=== PATIENT | male | born 1950 | race Caucasian/White ===

== ENCOUNTER → 2021-09-06 | Outpatient (CLI) | payer MEDICARE ==
--- NOTE | 2021-09-06 15:37 | Diagnostic Imaging Report ---
INDICATION: Right ankle pain. No known injury. 3 views of the right ankle show no fracture, dislocation or other acute abnormality. There are mild degenerative changes with mild spurring at the tip of the medial malleolus. There is a small corticated bony density inferior to the lateral malleolus which may be residual of old injury. There is a small subchondral cyst and tiny spur on the anterior aspect of the articular surface of the tibia. IMPRESSION: There are degenerative changes present with no acute abnormality seen. Dictated by: Dictated on workstation # [id number]
== END ==
LOC: RAD FS 13:22
PROVIDERS: ATTEND Nurse Practitioner
DX: M19.071 Primary osteoarthritis, right ankle and foot (principal)
CPT/HCPCS: 73610

== ENCOUNTER 2023-02-02 05:34 | Outpatient (CLI) | payer MEDICARE ==
[~2023-02-02] VITALS: Ht 177.8 cm; Wt 90.9 kg
[2023-02-03] MEDS ORDERED: HYDR25TA4 PO (09:33)
[2023-02-03] MEDS ORDERED: CARV6.252 PO (09:33)
[2023-02-03] MEDS ORDERED: ASPI-999 PO (09:33)
[2023-02-03] MEDS ORDERED: ENAL10TA16 PO (09:33)
[2023-02-03] MEDS ORDERED: MULT-1056 PO (09:33)
[2023-02-03] MEDS ORDERED: OMEP20TA56 PO (09:33)
[2023-02-03] MEDS ORDERED: ATOR20TA66 PO (09:33)
== END 2023-02-07 08:52 | disposition home or self-care (01) ==
LOC: PREOP 05:34
PROVIDERS: ATTEND Otolaryngology Otolaryngology/Facial Plastic Surgery
DX: Z01.818 Encounter for other preprocedural examination (principal)

== ENCOUNTER 2023-02-10 07:48 | Day surgery (SDC) | payer MEDICARE ==
[~2023-02-10] VITALS: Ht 177.8 cm; Wt 90.9 kg
[2023-02-10] VITALS (9 sets, daily range): BP systolic 117–143; BP diastolic 67–89
[~2023-02-10 07:48] MED LIST: ASPI-999 PO; ATOR20TA66 PO; CARV6.252 PO; ENAL10TA16 PO; HYDR25TA4 PO; MULT-1056 PO; OMEP20TA56 PO
[2023-02-10] MEDS ORDERED: LACTATED RINGERS 1,000 ML IV PRN (08:00)
[2023-02-10 08:30] LABS: BASOPHILS # (AUTO) 0.1 10^3/uL (0.0-0.1); BASOPHILS % (AUTO) 1 % (0-10); EOSINOPHILS # (AUTO) 0.2 10^3/uL (0.0-0.3); EOSINOPHILS % (AUTO) 3 % (0-10); HEMATOCRIT 39 % (40-54); HEMOGLOBIN 12.5 g/dL (13.3-17.7); LYMPHOCYTES # (AUTO) 1.6 10^3/uL (1.0-4.0); LYMPHOCYTES % (AUTO) 30 % (12-44); MEAN CORPUSCULAR HEMOGLOBIN 27 pg (25-34); MEAN CORPUSCULAR HGB CONC 32 g/dL (32-36); MEAN CORPUSCULAR VOLUME 86 fL (80-99); MEAN PLATELET VOLUME 10.7 fL (9.0-12.2); MONOCYTES # (AUTO) 0.6 10^3/uL (0.0-1.0); MONOCYTES % (AUTO) 11 % (0-12); NEUTROPHILS # (AUTO) 2.9 10^3/uL (1.8-7.8); NEUTROPHILS % (AUTO) 55 % (42-75); PLATELET COUNT 163 10^3/uL (130-400); WHITE BLOOD COUNT 5.3 10^3/uL (4.3-11.0)
[2023-02-10 08:49] LABS: CALCIUM 8.7 MG/DL (8.5-10.1); CREATININE SERUM 1.05 MG/DL (0.60-1.30); POTASSIUM 3.7 MMOL/L (3.6-5.0)
[2023-02-10] MEDS ORDERED: LIDOCAINE/EPI 1%-1:100,000 (XYLOCAINE) 20ML ONE (10:01)
[2023-02-10] MEDS ORDERED: LIDOCAINE PF 2% 5 ML (XYLOCAINE) VIAL ONE (10:03)
[2023-02-10] MEDS ORDERED: proPOfol 200 MG/20 ML (DIPRIVAN) VIAL IV ONE (10:03)
[2023-02-10] MEDS ORDERED: fentaNYL INJ 100 MCG/2 ML AMP ONE (10:03)
[2023-02-10] MEDS ORDERED: ONDANSETRON 4 MG/2 ML (SDV) Z0FRAN ONE (10:03)
--- NOTE | 2023-02-10 10:46 | Progress Note-Pre Operative ---
Pre-Operative Progress Note Date of Available H&P: Feb 10, 2023 Date H&P Reviewed: Feb 10, 2023 Time H&P Reviewed: 09:30 History & Physical: H&P Reviewed, Patient Examed, No changes noted Changes from last HP none Pre-Operative Diagnosis: Basal Cell of Left EAr GAVIN MANUEL MD Feb 10, 2023 10:46
--- NOTE | 2023-02-10 10:47 | Progress Note-Post Operative ---
Post-Operative Progess Note Surgeon (s)/Director Of Event Management (s) Surgeon GAVIN MANUEL MD Director Of Event Management n/a Pre-Operative Diagnosis Basal Cell of Left EAr Post-Operative Diagnosis same Post-Op Procedure Note Date of Procedure: Feb 10, 2023 Name of Procedure Performed: Wedge Resection of Left EAr, Reconstruction with Superior Based Advancement Flap Description & Findings Description and Findings: n/a Anesthesia Type lma Estimated Blood Loss minimal Packing none. Specimen(s) collected/removed left ear lesion GAVIN MANUEL MD Feb 10, 2023 10:47
[2023-02-10] MEDS ORDERED: ACETAMINOPHEN 325 MG TABLET PO PRN (11:00)
[2023-02-10] MEDS ORDERED: HYDROcodone/APAP 5 MG/325 MG (LORTAB) TAB PO PRN (11:00)
[2023-02-10] MEDS ORDERED: MUPIROCIN 2% OINT 22 GM (BACTROBAN) TUBE ONE (11:05)
[2023-02-10] MEDS ORDERED: SEVOFLURANE (ULTANE) 15 ML INHAL SOLN ONE (11:16)
[2023-02-10] MEDS ORDERED: CEPH500T PO (12:08)
[2023-02-10] MEDS ORDERED: ACHD5005 PO (12:08)
--- NOTE | 2023-02-10 14:35 | Anesthesia-General Post-Op ---
General Patient Condition Mental Status/LOC: Same as Preop Cardiovascular: Satisfactory Nausea/Vomiting: Absent Respiratory: Satisfactory Pain: Controlled Complications: Absent Post Op Complications Complications None Follow Up Care/Instructions Patient Instructions None needed. Anesthesia/Patient Condition Patient Condition Patient was doing well after the procedure with no complaints, stable vital signs, no apparent adverse anesthesia problems. No complications reported per nursing. PUJA HUNTER 24, 2023 14:35
== END 2023-02-10 12:45 | disposition home or self-care (01) ==
LOC: SDC 07:48
PROVIDERS: ATTEND Otolaryngology Otolaryngology/Facial Plastic Surgery
DX: C44.219 Basal cell carcinoma of skin of left ear and external auricular canal (principal)
CPT/HCPCS: 36415; 80048; 85025; 87081; 88305; 88331; 88332; 93005